=== PATIENT | female | born 1950 | race Caucasian/White ===

== ENCOUNTER → 2016-11-01 | Outpatient (CLI) | payer OTHER | LOC: MMPC 09:00 | PROVIDERS: ATTEND Nurse Practitioner Family | DX: I10 Essential (primary) hypertension (principal); E78.5 Hyperlipidemia, unspecified; E03.9 Hypothyroidism, unspecified; F32.9 Major depressive disorder, single episode, unspecified; K21.9 Gastro-esophageal reflux disease without esophagitis; L64.8 Other androgenic alopecia | CPT/HCPCS: 99214; G0463 ==

== ENCOUNTER → 2016-11-25 | Outpatient (CLI) | payer OTHER ==
[2016-11-25 10:35] LABS: BILIRUBIN,TOTAL 0.8 mg/dL (0.3-1.2); BUN/CREATININE RATIO 22.14 (6-20); CALCIUM 9.8 mg/dL (8.7-10.7); CREATININE 1.4 mg/dL (0.50-1.20); POTASSIUM 4.7 meq/L (3.8-5.2); TOTAL PROTEIN 8.4 g/dL (6.1-8.0)
== END ==
LOC: LAB 09:59
PROVIDERS: ATTEND Dermatology
DX: L64.8 Other androgenic alopecia (principal)
CPT/HCPCS: 36415; 80053; 82728; 84443

== ENCOUNTER → 2016-12-05 | Outpatient (CLI) | payer OTHER ==
[2016-12-05 13:13] LABS: BILIRUBIN,TOTAL 0.8 mg/dL (0.3-1.2); BUN/CREATININE RATIO 23.33 (6-20); CALCIUM 9.8 mg/dL (8.7-10.7); CREATININE 1.2 mg/dL (0.50-1.20); TOTAL PROTEIN 8.1 g/dL (6.1-8.0)
[2016-12-05 13:18] LABS: BASOPHILS # (AUTO) 0.08 10*3/UL; BASOPHILS % (AUTO) 0.8 % (0-1); EOSINOPHILS % (AUTO) 2.6 % (0-8); HEMATOCRIT 41.4 % (37.0-47.0); HEMOGLOBIN 13.9 g/dL (12.0-16.0); IMM GRAN % (AUTO) 0.5 % (0-5); IMM GRAN# (AUTO) 0.05 10*3/UL; LYMPHOCYTES # (AUTO) 1.44 10*3/uL; LYMPHOCYTES % (AUTO) 13.8 % (10-50); MEAN CORPUSCULAR HEMOGLOBIN 30.6 PG (27-31); MEAN CORPUSCULAR HGB CONC 33.6 g/dL (33-37); MEAN PLATELET VOLUME 11.2 FL (7.4-12.2); MONOCYTES # (AUTO) 0.77 10*3/UL (0.3-0.8); MONOCYTES % (AUTO) 7.4 % (5-15); NEUTROPHILS # (AUTO) 7.85 10*3/UL; NEUTROPHILS % (AUTO) 74.9 % (50-80); RDW COEFFICIENT OF VARIATION 13.8 % (11.5-14.5); RED BLOOD COUNT 4.54 10^6/uL (4.20-5.40); WHITE BLOOD COUNT 10.46 10^3/uL (4.8-10.8)
[2016-12-05 13:29] LABS: FREE T4 (FREE THYROXINE) 1.41 ng/dL (0.93-1.71)
[2016-12-05 13:56] LABS: PLATELET MORPHOLOGY COMMENT SEE COMMENTS (NORM)
[2016-12-06 15:41] LABS: A/G RATIO 0.91 (()); ALB PEP SER 3.6 g/dL (3.4-4.7); ALP1 GLOB 0.3 g/dL (0.1-0.3); ALP2 GLOB 1.2 g/dL (0.6-1.0); BETA GLOBS 1.1 g/dL (0.7-1.2); GAMMA GLOBS 1.4 g/dL (0.6-1.6); TOT PRT SERUM 7.6 g/dL (6.3 - 7.9)
[2016-12-07 06:50] LABS: IMPRESSION SEE COMMENTS (())
== END ==
LOC: MOB LAB 11:33
PROVIDERS: ATTEND Internal Medicine
DX: E05.90 Thyrotoxicosis, unspecified without thyrotoxic crisis or storm (principal); I10 Essential (primary) hypertension; R94.4 Abnormal results of kidney function studies
CPT/HCPCS: 36415; 80053; 80061; 84155; 84165; 84439; 84443; 84481; 85025

== ENCOUNTER → 2016-12-19 | Outpatient (CLI) | payer OTHER ==
[2016-12-19 16:15] LABS: CALCIUM 9.5 mg/dL (8.7-10.7); SERUM ALBUMIN 4.3 g/dL (3.5-4.8)
== END ==
LOC: LAB 15:30
PROVIDERS: ATTEND Nurse Practitioner Family
DX: R94.4 Abnormal results of kidney function studies (principal); I10 Essential (primary) hypertension
CPT/HCPCS: 36415; 80053

== ENCOUNTER → 2017-01-30 | Outpatient (CLI) | payer OTHER ==
[2017-01-30 15:21] LABS: BASOPHILS # (AUTO) 0.05 10*3/UL; BASOPHILS % (AUTO) 0.6 % (0-1); EOSINOPHILS # (AUTO) 0.23 10*3/UL; EOSINOPHILS % (AUTO) 2.6 % (0-8); HEMATOCRIT 38.4 % (37.0-47.0); HEMOGLOBIN 12.5 g/dL (12.0-16.0); LYMPHOCYTES # (AUTO) 2.09 10*3/uL; MEAN CORPUSCULAR HEMOGLOBIN 30.7 PG (27-31); MEAN CORPUSCULAR HGB CONC 32.6 g/dL (33-37); MEAN CORPUSCULAR VOLUME 94.3 FL (81-99); MEAN PLATELET VOLUME 8.6 FL (7.4-12.2); MONOCYTES # (AUTO) 0.74 10*3/UL (0.3-0.8); MONOCYTES % (AUTO) 8.5 % (5-15); NEUTROPHILS # (AUTO) 5.54 10*3/UL; NEUTROPHILS % (AUTO) 63.7 % (50-80); RED BLOOD COUNT 4.07 10^6/uL (4.20-5.40)
[2017-01-30 15:30] LABS: PLATELET MORPHOLOGY COMMENT NORMAL MORPHOLOGY (NORM); RBC MORPHOLOGY COMMENT NORMAL MORPHOLOGY (NORM); WBC MORPHOLOGY COMMENT NORMAL MORPHOLOGY (NORM)
== END ==
LOC: LAB 15:11
PROVIDERS: ATTEND Nurse Practitioner Family
DX: I10 Essential (primary) hypertension (principal); E78.5 Hyperlipidemia, unspecified; K21.9 Gastro-esophageal reflux disease without esophagitis; K22.70 Barrett's esophagus without dysplasia; M85.80 Other specified disorders of bone density and structure, unspecified site; R76.9 Abnormal immunological finding in serum, unspecified; R79.89 Other specified abnormal findings of blood chemistry; R94.4 Abnormal results of kidney function studies
CPT/HCPCS: 36415; 85025

== ENCOUNTER → 2017-01-31 | Outpatient (CLI) | payer OTHER | LOC: MMPC 09:00 | PROVIDERS: ATTEND Nurse Practitioner Family | DX: F32.9 Major depressive disorder, single episode, unspecified (principal); I10 Essential (primary) hypertension; E03.9 Hypothyroidism, unspecified; K22.70 Barrett's esophagus without dysplasia | CPT/HCPCS: 99214; G0463 ==

== ENCOUNTER → 2017-02-01 | Outpatient (CLI) | payer OTHER ==
[2017-02-01 10:29] LABS: FREE T4 (FREE THYROXINE) 1.17 ng/dL (0.93-1.71)
== END ==
LOC: LAB 08:37
PROVIDERS: ATTEND Internal Medicine
DX: R79.0 Abnormal level of blood mineral (principal); E03.9 Hypothyroidism, unspecified
CPT/HCPCS: 82728; 83540; 83550; 84439; 84443; 84481

== ENCOUNTER → 2017-03-27 | Outpatient (CLI) | payer OTHER ==
--- NOTE | 2017-03-27 14:08 | DI ---
RIGHT WRIST, 03/27/2017 1:13 PM: Clinical History: Right wrist pain. Previous Exam: None at this facility. 3 views are submitted. There is no acute soft tissue, osseous, or joint abnormality. Moderate arthrit ic changes are present in the first carpometacarpal joint. Reading: Degenerative arthritic changes are present in the first carpometacarpal joint. The remainder of the e xam is normal.
== END ==
LOC: MOB RAD 13:16
PROVIDERS: ATTEND Physician Assistant
DX: M25.531 Pain in right wrist (principal); M18.11 Unilateral primary osteoarthritis of first carpometacarpal joint, right hand
CPT/HCPCS: 73110

== ENCOUNTER → 2017-04-03 | Outpatient (CLI) | payer OTHER | LOC: MMPC 09:00 | PROVIDERS: ATTEND Nurse Practitioner Family | DX: R05 Cough (principal); D50.9 Iron deficiency anemia, unspecified | CPT/HCPCS: 99214; G0463 ==

== ENCOUNTER → 2017-04-19 | Outpatient (CLI) | payer OTHER | LOC: MMPC 11:11 | PROVIDERS: ATTEND Surgery | DX: K22.70 Barrett's esophagus without dysplasia (principal); D50.9 Iron deficiency anemia, unspecified; Z86.010 Personal history of colon polyps | CPT/HCPCS: 99213; G0463 ==